=== PATIENT | male | born 1945 | race Caucasian/White ===

== ENCOUNTER 2018-06-13 15:41 | Emergency (ER) | payer MEDICARE, BC ==
[2018-06-13 15:52] VITALS: BP 160/84
--- NOTE | 2018-06-13 16:10 | UC ---
UC General HPI - HPI Summary HPI Summary: 73-year-old male comes to clinic today with a chief complaint of pain and swelling in the left jaw. Patient reports 2 days ago he was leaning over and turned his head and had sudden onset of pain in the left jaw. He is unable to open his mouth more than about 2 cm. The pain is very close to the left TMJ and parotid area. Does have some pain into the ear. Denies any dental pain. Has been able to swallow. Pain is worse with palpation and attempting to open the mouth fully. There is swelling in that area also. - History of Current Complaint Chief Complaint: UCGeneralIllness Stated Complaint: JAW PAIN Time Seen by Provider: 06/13/18 15:53 Pain Intensity: 4 - Allergy/Home Medications Allergies/Adverse Reactions: Allergies Allergy/AdvReac Type Severity Reaction Status Date / Time seafood Allergy Swelling Uncoded 06/13/18 15:53 Of Face,Lips,& Throat Home Medications: Home Medications Arginine HCl [l-Arginine Maximum Streng] 1,000 mg PO 06/13/18 [History] Ascorbic Acid TAB* [Vitamin C TAB*] 500 mg PO DAILY 06/13/18 [History Confirmed 06/13/18] Cholecalciferol (Vitamin D3) [Vitamin D3] 1,000 unit PO 06/13/18 [History] Finasteride TAB* [Proscar TAB*] 5 mg PO DAILY 06/13/18 [History Confirmed ] Hydrochlorothiazide TAB* [Hydrodiuril TAB*] 25 mg PO DAILY 06/13/18 [History Confirmed 06/13/18] Levothyroxine TAB* [Synthroid TAB*] 50 mcg PO DAILY 06/13/18 [History Confirmed 06/13/18] Magnesium [Magnesium Elemental] 30 mg PO 06/13/18 [History] Potassium Chlor TAB* [Klor Con ER TAB*] 20 meq PO DAILY 06/13/18 [History Confirmed 06/13/18] Pravastatin (NF) [Pravachol (NF)] 10 mg PO 1700 06/13/18 [History Confirmed ] PMH/Surg Hx/FS Hx/Imm Hx Previously Healthy: Yes Endocrine History: Hypothyroidism, Dyslipidemia Other GI/ History: bph - Surgical History Surgical History: Yes Surgery Procedure, Year, and Place: wisdom teeth 1962 - Family History Known Family History: Positive: Non-Contributory - Social History Alcohol Use: Occasionally Substance Use Type: None Smoking Status (MU): Never Smoked Tobacco Review of Systems All Other Systems Reviewed And Are Negative: Yes Constitutional: Positive: Negative Skin: Positive: Negative Eyes: Positive: Negative ENT: Positive: Ear Ache, Other - see hpi Respiratory: Positive: Negative Cardiovascular: Positive: Negative Gastrointestinal: Positive: Negative Motor: Positive: Negative Neurovascular: Positive: Negative Musculoskeletal: Positive: Negative Neurological: Positive: Negative Psychological: Positive: Negative Is Patient Immunocompromised?: No Physical Exam Triage Information Reviewed: Yes Appearance: Well-Appearing, No Pain Distress, Well-Nourished Vital Signs: Initial Vital Signs Temp 96.9 F 06/13/18 15:47 Pulse 82 06/13/18 15:47 Resp 16 06/13/18 15:47 BP 160/84 06/13/18 15:47 Pulse Ox 99 06/13/18 15:47 Vital Signs Reviewed: Yes Eye Exam: Normal Eyes: Positive: Conjunctiva Clear ENT: Positive: Pharynx normal, Uvula midline, Other - b/l cerumen impaction. Patient has swelling and tenderness left face. It's most swollen and tender over the left TMJ mildly tender over the left parotid. No obvious dental infection. Submandibular gland is nontender and nonswollen. Patient can open up his teeth about 2 cm max.. Negative: Trismus, Muffled voice, Hoarse voice Dental: Negative: Gross Decay/Caries @ Neck exam: Normal Neck: Positive: Supple Respiratory: Positive: Lungs clear, Normal breath sounds, No respiratory distress Cardiovascular: Positive: RRR Musculoskeletal Exam: Normal Musculoskeletal: Positive: Strength Intact Neurological Exam: Normal Neurological: Positive: Alert, Muscle Tone Normal Psychological Exam: Normal Psychological: Positive: Normal Response To Family, Age Appropriate Behavior Skin Exam: Normal Course/Dx - Course Course Of Treatment: Order Information: CT MAXILLOFACIAL W/O. Accession Number : [id number]. CPT: 76810. INDICATION: Left temporomandibular joint pain. COMPARISON: There are no relevant prior studies available for comparison. TECHNIQUE: Contiguous axial sections of the axial images of the facial bones were obtained. and reconstructed in the coronal and sagittal planes. FINDINGS : The bones appear intact. No fracture is seen. There is mild to moderate. bilateral osteoarthritic change in the temporomandibular joints. The left parotid gland is slightly enlarged with increased density suggestive of an. infectious or inflammatory process although nonspecific. The submandibular glands appear. to be within normal limits. The paranasal sinuses appear clear. There is moderate to severe deviation of the nasal. septum toward the left side. IMPRESSION: 1. MILD ENLARGEMENT AND INCREASED DENSITY WITHIN THE LEFT PAROTID GLAND SUGGESTIVE OF AN. INFECTIOUS OR INFLAMMATORY PROCESS. RECOMMEND CLINICAL CORRELATION AND FOLLOW-UP. 2. 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 . <Electronically signed by Song Cartwright MD in [place]> 06/13/18 [id number]. I discussed the CT results with the patient I discussed I discussed the CT results with the patient and his . The parotid gland is swollen on examination therefore I will treat for parotid obstruction and/or infection. He has a hard time opening his mouth all the way and he has arthritis in the joint therefore I will treat with nonsteroidal anti- inflammatories. The overall plan is to follow-up with ENT. - Diagnoses Provider Diagnosis: Parotitis, TMJ arthralgia Discharge - Sign-Out/Discharge Documenting (check all that apply): Patient Departure All imaging exams completed and their final reports reviewed: Yes - Discharge Plan Condition: Stable Disposition: HOME Prescriptions: Amoxicillin/Clavulanate TAB* [Augmentin TAB 875*] 875 mg PO BID #20 tab Patient Education Materials: Temporomandibular Disorder (ED), Sialoadenitis (ED ) Referrals: Michael Celestin MD [Primary Care Provider] - Nima Harrison MD [Medical Doctor] - Additional Instructions: FOLLOW UP WITH ENT. GET RECHECKED FOR ANY WORSENING OF YOUR CONDITION OR QUESTIONS OR CONCERNS. - Billing Disposition and Condition Condition: STABLE Disposition: Home
== END 2018-06-13 17:25 | disposition home or self-care (01) ==
LOC: UCEAST 15:41
DX: K11.20 Sialoadenitis, unspecified (principal); M26.622 Arthralgia of left temporomandibular joint; E03.9 Hypothyroidism, unspecified; E78.5 Hyperlipidemia, unspecified; N40.0 Benign prostatic hyperplasia without lower urinary tract symptoms
CPT/HCPCS: 70486; 99212; G0463